=== PATIENT | female | born 1975 | race Caucasian/White ===

== ENCOUNTER 2018-12-15 08:34 | Outpatient (CLI) | payer BC ==
[2018-12-15 10:11] LABS: Hematocrit 40.9 % (30.3-42.9); Hemoglobin 13.9 gm/dl (10.1-14.3); Mean Corpuscular HGB Conc 34 % (30-34); Mean Corpuscular Volume 95 fl (79-97); Platelet Count 386 K/mm3 (140-440); Red Blood Count 4.29 M/mm3 (3.65-5.03); Red Cell Distribution Width 14.7 % (13.2-15.2)
[2018-12-15 10:23] LABS: Alanine Aminotransferase 23 units/L (7-56); BUN/Creatinine Ratio 20; Blood Urea Nitrogen 12 mg/dL (7-17); Calcium 9.2 mg/dL (8.4-10.2); Hemolysis Index 1
[2018-12-15 11:22] LABS: Free T4 (Free Thyroxine) 0.87 ng/dL (0.76-1.46)
== END 2018-12-15 08:35 | disposition home or self-care (01) ==
LOC: LAB 08:34
PROVIDERS: ATTEND Internal Medicine
DX: Z00.00 Encounter for general adult medical examination without abnormal findings (principal)
CPT/HCPCS: 36415; 80048; 80053; 82607; 82747; 83036; 84439; 84443; 85027

== ENCOUNTER 2019-02-09 13:49 | Outpatient (CLI) | payer BC ==
[2019-02-09 15:21] LABS: Alanine Aminotransferase 25 units/L (7-56); Albumin 4.3 g/dL (3.9-5); BUN/Creatinine Ratio 13; Blood Urea Nitrogen 9 mg/dL (7-17); Calcium 9.3 mg/dL (8.4-10.2); Hemolysis Index 5
== END 2019-02-09 13:50 | disposition home or self-care (01) ==
LOC: LAB 13:49
PROVIDERS: ATTEND Family Medicine
DX: K58.1 Irritable bowel syndrome with constipation (principal); R10.12 Left upper quadrant pain; R14.0 Abdominal distension (gaseous); Z86.19 Personal history of other infectious and parasitic diseases
CPT/HCPCS: 36415; 80053

== ENCOUNTER 2019-05-18 23:04 | Inpatient (IN) | payer BC ==
[2019-05-18] MEDS ORDERED: IPRATROPIUM/ALBUTEROL SULFATE 3 ML AMPUL.NEB IH ONE ×2 (23:18→23:23)
[2019-05-18] MEDS ORDERED: methylPREDNISolone Sod Succinate 125 MG/2 ML INJ IV ONE (23:21)
[2019-05-18] MEDS ORDERED: MAGNESIUM SULFATE 2 GM/50 ML BAG IV ONE (23:21)
--- NOTE | 2019-05-18 23:29 | Emergency Department Report ---
ED Asthma HPI - General Chief Complaint: Adult Asthma Stated Complaint: WILBERT Time Seen by Provider: 05/18/19 23:09 Source: patient, family Mode of arrival: Ambulatory Limitations: Other - History of Present Illness Initial Comments: Patient is a 43-year-old female with known asthma that presents emergency with complaints of shortness of breath and difficulty breathing. Patient states her asthma is worsening. Patient states her since been going on for 1 day. Patient states she is taking her Advair and albuterol. Patient states she has a insole taper and a primary care. Patient denies fever and chills. Patient denies chest pain. MD Complaint: "asthma attack", shortness of breath, wheezing -: Sudden Asthma History: childhood onset Severity: severe Associated Symptoms: dry cough. denies: productive cough, fever, chest pain, hemoptysis, leg edema, syncope Treatments Prior to Arrival: inhaled bronchodilator - Related Data Current Asthma Therapy: inhaled bronchodilator, inhaled steroid Allergies Allergy/AdvReac Type Severity Reaction Status Date / Time No Known Allergies Allergy Unverified 05/18/19 23:26 ED Review of Systems ROS: Stated complaint: WILBERT Other details as noted in HPI Constitutional: denies: chills, fever Eyes: denies: eye pain, eye discharge, vision change ENT: denies: ear pain, throat pain Respiratory: cough, shortness of breath, SOB with exertion, SOB at rest, wheezing Cardiovascular: denies: chest pain, palpitations Endocrine: no symptoms reported Gastrointestinal: denies: abdominal pain, nausea, diarrhea Genitourinary: denies: urgency, dysuria, discharge Musculoskeletal: denies: back pain, joint swelling, arthralgia Skin: denies: rash, lesions Neurological: denies: headache, weakness, paresthesias Psychiatric: denies: anxiety, depression Hematological/Lymphatic: denies: easy bleeding, easy bruising ED Past Medical Hx - Past Medical History Previous Medical History?: Yes Hx Asthma: Yes - Surgical History Past Surgical History?: No - Family History Family history: no significant - Social History Smoking Status: Never Smoker Substance Use Type: None ED Physical Exam - General Limitations: Other General appearance: alert, in distress - Head Head exam: Present: atraumatic, normocephalic - Eye Eye exam: Present: normal appearance - ENT ENT exam: Present: mucous membranes moist - Neck Neck exam: Present: normal inspection - Respiratory Respiratory exam: Present: respiratory distress, wheezes, chest wall tenderness - Cardiovascular Cardiovascular Exam: Present: regular rate, normal rhythm. Absent: systolic murmur, diastolic murmur, rubs, gallop - GI/Abdominal GI/Abdominal exam: Present: soft, normal bowel sounds - Extremities Exam Extremities exam: Present: normal inspection - Back Exam Back exam: Present: normal inspection - Neurological Exam Neurological exam: Present: alert, oriented X3 - Psychiatric Psychiatric exam: Present: normal affect, normal mood - Skin Skin exam: Present: warm, dry, intact, normal color. Absent: rash ED Course Vital Signs 05/18/19 05/18/19 05/18/19 19:05 20:00 20:30 Temperature Pulse Rate 67 84 Pulse Rate [ Anterior Bilateral Throughout] Respiratory 14 17 Rate Respiratory Rate [Anterior Bilateral Throughout] Blood Pressure 166/103 166/103 176/124 O2 Sat by Pulse 100 98 Oximetry 05/18/19 05/18/19 05/18/19 21:00 21:30 23:26 Temperature Pulse Rate 104 H 77 96 H Pulse Rate [ Anterior Bilateral Throughout] Respiratory 10 L 14 Rate Respiratory Rate [Anterior Bilateral Throughout] Blood Pressure 176/124 159/88 159/88 O2 Sat by Pulse 97 98 100 Oximetry 05/18/19 05/18/19 05/19/19 23:35 23:42 00:02 Temperature 97.9 F Pulse Rate 109 H Pulse Rate [ 103 H Anterior Bilateral Throughout] Respiratory 26 H Rate Respiratory 22 22 Rate [Anterior Bilateral Throughout] Blood Pressure 155/94 O2 Sat by Pulse 96 Oximetry 05/19/19 05/19/19 00:04 02:28 Temperature Pulse Rate 103 H Pulse Rate [ 99 H Anterior Bilateral Throughout] Respiratory 17 Rate Respiratory 18 Rate [Anterior Bilateral Throughout] Blood Pressure O2 Sat by Pulse 100 Oximetry - Reevaluation(s) Reevaluation #1: Patient is still having increased work to breathe. Patient will placed on BiPAP. Patient's oxygen has improved. 05/18/19 23:43 Reevaluation #2: Patient states she is feeling better. Patient is currently on the BiPAP. Patient still wheezing. Patient's work to breathe has decreased. I discussed all results patient. Discussed plan of care outpatient. Patient agrees with plan of care and admission. [facility] 00:58 - Consultations Consultation #1: Hospitalist consult for admission. Hospitalist and the patient. 05/19/19 00:58 ED Medical Decision Making - Lab Data Result diagrams: 05/18/19 23:35 05/18/19 23:35 - Radiology Data Radiology results: report reviewed interpreted by me: CHEST 1 VIEW 1. No acute findings. CHEST 1 VIEW INDICATION / CLINICAL INFORMATION: Asthma. COMPARISON: None available. FINDINGS: SUPPORT DEVICES: None. HEART / MEDIASTINUM: No significant abnormality. LUNGS / PLEURA: No significant pulmonary or pleural abnormality.. No pneumothorax. ADDITIONAL FINDINGS: No significant additional findings. IMPRESSION: 1. No acute findings. - Medical Decision Making Patient is a 43-year-old female that presents emergency room with complaints of shortness of breath and asthmatic sounds. Patient found to be in respiratory distress and increased work of breathing and status asthmaticus. Patient given multiple medications. Patient required BiPAP for respiratory support and oxygen support. Patient's work of breathing improved with BiPAP. Patient will be admitted to the hospitalist service for observation. Patient will remain on the BiPAP. - Differential Diagnosis shortness of breath, asthma, status asthmaticus, bronchitis, pneumonia Critical Care Time: Yes Critical care time in (mins) excluding proc time.: 35 Critical care attestation.: If time is entered above; I have spent that time in minutes in the direct care of this critically ill patient, excluding procedure time. Critical Care Time: 35 minutes ED Disposition Clinical Impression: Respiratory distress, SOB (shortness of breath), Hypoxia Status asthmaticus Qualifiers: Asthma severity: severe Asthma persistence: unspecified Qualified Code(s): J45.902 - Unspecified asthma with status asthmaticus Respiratory failure Qualifiers: Chronicity: acute Respiratory failure complication: hypoxia Qualified Code(s): J96.01 - Acute respiratory failure with hypoxia Disposition: -09 OP ADMIT IP TO THIS HOSP Is pt being admited?: Yes Does the pt Need Aspirin: No Condition: Critical Time of Disposition: 00:58
[2019-05-18] MEDS ORDERED: ALBUTEROL 2.5 MG/3 ML NEBU IH ONE (23:43)
[2019-05-18 23:54] LABS: Basophils # (Auto) 0.1 K/mm3 (0.0-0.1); Basophils % (Auto) 0.5 % (0.0-1.8); Eosinophils # (Auto) 1.1 K/mm3 (0.0-0.4); Hematocrit 43.7 % (30.3-42.9); Hemoglobin 14.4 gm/dl (10.1-14.3); Lymphocytes % (Auto) 12.9 % (13.4-35.0); Mean Corpuscular HGB Conc 33 % (30-34); Mean Corpuscular Volume 96 fl (79-97); Monocytes # (Auto) 1.5 K/mm3 (0.0-0.8); Monocytes % (Auto) 9.8 % (0.0-7.3); Platelet Count 407 K/mm3 (140-440); Red Blood Count 4.56 M/mm3 (3.65-5.03); Red Cell Distribution Width 14.2 % (13.2-15.2)
--- NOTE | 2019-05-19 00:01 | XRay Report ---
CHEST 1 VIEW INDICATION / CLINICAL INFORMATION: Asthma. COMPARISON: None available. FINDINGS: SUPPORT DEVICES: None. HEART / MEDIASTINUM: No significant abnormality. LUNGS / PLEURA: No significant pulmonary or pleural abnormality.. No pneumothorax. ADDITIONAL FINDINGS: No significant additional findings. IMPRESSION: 1. No acute findings. Signer Name: Ray Crews MD Signed: 05/18/2019 11:57 PM Workstation Name: [id number]
[2019-05-19 00:16] LABS: Alanine Aminotransferase 25 units/L (7-56); Albumin 4.1 g/dL (3.9-5); BUN/Creatinine Ratio 12; Blood Urea Nitrogen 7 mg/dL (7-17); Hemolysis Index 5
[2019-05-19] MEDS ORDERED: CEFEPIME/NS 2 GM/100 ML 2 GM/100 ML BAG IV ONE ×2 (00:33→05:26)
[2019-05-19] MEDS ORDERED: DEXTROSE 50% IN WATER (25GM) 50 ML SYRINGE IV PRN (01:39)
[2019-05-19] MEDS ORDERED: ONDANSETRON 4 MG/2 ML INJ IV PRN (01:39)
--- NOTE | 2019-05-19 02:17 | History and Physical Report ---
<BEST OWEN Chinedu - Last Filed: 05/19/19 02:10> History of Present Illness Date of examination: 05/19/19 Date of admission: 05/19/2019 Chief complaint: WILBERT History of present illness: 42-year-old female with history of asthma and diabetes who presents to [facility] ED with complaints of difficulty breathing, and shortness of breath for the past day. Patient states that she has been experiencing i worsening shortness of breath and difficulty breathing despite using her rescue inhaler and maintenance Advair inhaler for the past day. She states that she is unable to walk more than a few steps without becoming profoundly short of breath. She also complains of cough with yellow/green sputum production. She denies tobacco use, fever, headache, hemoptysis, or recent sick contacts. Her corporate quality engineer is Dr. Sousa and her PCP is Dr. Bay. At the time of my examination patient is sitting up in stretcher, alert and oriented x3, on BiPAP. She is unable to talk in complete sentences due to her shortness of breath. On auscultation scattered wheezings with prolonged expiratory phase. [facility] and upper respiratory tract infection. Also will consult Dr. Sousa. Past History Past Medical History: diabetes, hypertension, other (Asthma) Past Surgical History: No surgical history Social history: lives with family. denies: smoking Family history: no significant family history Medications and Allergies Allergies Allergy/AdvReac Type Severity Reaction Status Date / Time No Known Allergies Allergy Unverified 05/18/19 23:26 Active Meds: Active Medications Acetaminophen (Tylenol) 650 mg PO Q4H PRN PRN Reason: Pain MILD(1-3)/Fever >100.5/COTTRELL Albuterol (Proventil) 2.5 mg IH Q3HRT PRN PRN Reason: Shortness Of Breath Albuterol/Ipratropium (Duoneb *Not For Prn Use*) 1 ampul IH Q6HRT [facility] Benzonatate (Tessalon Perles) 100 mg PO Q8HR ERIC Budesonide (Pulmicort) 0.5 mg IH Q12HRT [facility] Dextrose (D50w (25gm) Syringe) 0 ml IV Q30MIN PRN; Protocol PRN Reason: Hypoglycemia Docusate Sodium (Colace) 100 mg PO BID [facility] Guaifenesin (Mucinex Er) 600 mg PO BID [facility] Heparin Sodium (Porcine) (Heparin) 5,000 unit SUB-Q Q12HR [facility] Levofloxacin/Dextrose (Levaquin 500mg/100ml) 500 mg in 100 mls @ 100 mls/hr IV Q24HR [facility]; Protocol Insulin Human Lispro (Humalog) 0 unit SUB-Q ACHS [facility]; Protocol Methylprednisolone Sodium Succinate (Solu-Medrol) 80 mg IV Q8HR [facility] Ondansetron HCl (Zofran) 4 mg IV Q8H PRN PRN Reason: Nausea And Vomiting Sodium Chloride (Sodium Chloride Flush Syringe 10 Ml) 10 ml IV BID [facility] Sodium Chloride (Sodium Chloride Flush Syringe 10 Ml) 10 ml IV PRN PRN PRN Reason: LINE FLUSH Review of Systems All systems: negative Respiratory: cough with sputum (dark yellow/ green), shortness of breath, dyspnea on exertion, wheezing Exam - Physical Exam Narrative exam: Physical exam General appearance: Present: mild distress, alert and oriented 3, pleasant, well-developed, adult female - EENT Eyes: Present: PERRL, EOM intact ENT: hearing intact, normal dentition - Neck Neck: Present: supple, normal ROM - Respiratory Respiratory effort: Labored, on BiPAP Respiratory: Wheezing throughout - Cardiovascular Heart rate: 109 (bpm) Rhythm: Sinus tachycardia Heart Sounds: Present: S1 & S2. Absent: rub, click - Extremities Extremities: no ischemia, pulses intact, - Peripheral Assessment Peripheral Pulses: within normal limits - Abdominal General gastrointestinal: soft, non-tender, normal bowel sounds - Integumentary Integumentary: Present: warm, dry - Musculoskeletal Musculoskeletal: Able to move all extremities -Neurological Neurological: CN II-XII intact - Psychiatric Psychiatric: cooperative - Constitutional Vitals: Temp Pulse Resp BP Pulse Ox 97.9 F 103 H 17 155/94 100 05/18/19 23:35 05/19/19 00:04 05/19/19 00:04 05/18/19 23:35 05/19/19 00:04 Results - Labs CBC & Chem 7: 05/18/19 23:35 05/18/19 23:35 Labs: Laboratory Last Values WBC 15.3 K/mm3 (4.5-11.0) H 05/18/19 23:35 RBC 4.56 M/mm3 (3.65-5.03) 05/18/19 23:35 Hgb 14.4 gm/dl (10.1-14.3) H 05/18/19 23:35 Hct 43.7 % (30.3-42.9) H 05/18/19 23:35 MCV 96 fl (79-97) 05/18/19 23:35 MCH 32 pg (28-32) 05/18/19 23:35 MCHC 33 % (30-34) 05/18/19 23:35 RDW 14.2 % (13.2-15.2) 05/18/19 23:35 Plt Count 407 K/mm3 (140-440) 05/18/19 23:35 Lymph % (Auto) 12.9 % (13.4-35.0) L 05/18/19 23:35 [place] % (Auto) 9.8 % (0.0-7.3) H 05/18/19 23:35 Eos % (Auto) 7.0 % (0.0-4.3) H 05/18/19 23:35 Baso % (Auto) 0.5 % (0.0-1.8) 05/18/19 23:35 Lymph # 2.0 K/mm3 (1.2-5.4) 05/18/19 23:35 [place] # 1.5 K/mm3 (0.0-0.8) H 05/18/19 23:35 Eos # 1.1 K/mm3 (0.0-0.4) H 05/18/19 23:35 Baso # 0.1 K/mm3 (0.0-0.1) 05/18/19 23:35 Seg Neutrophils % 69.8 % (40.0-70.0) 05/18/19 23:35 Seg Neutrophils # 10.7 K/mm3 (1.8-7.7) H 05/18/19 23:35 Sodium 142 mmol/L (137-145) 05/18/19 23:35 Potassium 4.4 mmol/L (3.6-5.0) 05/18/19 23:35 Chloride 105.8 mmol/L (98-107) 05/18/19 23:35 Carbon Dioxide 24 mmol/L (22-30) 05/18/19 23:35 Anion Gap 17 mmol/L 05/18/19 23:35 BUN 7 mg/dL (7-17) 05/18/19 23:35 Creatinine 0.6 mg/dL (0.7-1.2) L 05/18/19 23:35 Estimated GFR > 60 ml/min 05/18/19 23:35 BUN/Creatinine Ratio 12 % 05/18/19 23:35 Glucose 126 mg/dL (65-100) H 05/18/19 23:35 Calcium 9.0 mg/dL (8.4-10.2) 05/18/19 23:35 Total Bilirubin 0.40 mg/dL (0.1-1.2) 05/18/19 23:35 AST 22 units/L (5-40) 05/18/19 23:35 ALT 25 units/L (7-56) 05/18/19 23:35 Alkaline Phosphatase 58 units/L (35-129) 05/18/19 23:35 Total Protein 6.7 g/dL (6.3-8.2) 05/18/19 23:35 Albumin 4.1 g/dL (3.9-5) 05/18/19 23:35 Albumin/Globulin Ratio 1.6 % 05/18/19 23:35 - Imaging and Cardiology Imaging and Cardiology: CXR: FINDINGS: SUPPORT DEVICES: None. HEART / MEDIASTINUM: No significant abnormality. LUNGS / PLEURA: No significant pulmonary or pleural abnormality.. No pneumothorax. ADDITIONAL FINDINGS: No significant additional findings. IMPRESSION: 1. No acute findings. Assessment and Plan Assessment and plan: 42-year-old female with history of asthma and diabetes who presents to [facility] ED with complaints of difficulty breathing, and shortness of breath for the past day. Asthma exacerbation/upper respiratory tract infection -C/o cough with yellow/green thick sputum production -Leukocytosis 15.3 -Increased shortness of breath -Start IV ABX -Scheduled duo nebs and Pulmicort, albuterol PRN -Start IV systemic steroids -Start Mucinex -Pulmonary consulted Acute hypoxic respiratory failure -No Baseline home oxygen requirements -Saturation <88% on RA -Currently on BiPaP -ABG pending -Monitor saturations -Continue supplemental oxygen wean as tolerated DM -POC BG monitoring -SSI coverage prn -HgbA1C pending Elevated blood pressure -BP 155/94 -No history of hypertension -Continue to monitor BP -Hold off on starting antihypertensive meds -IV hydralazine as needed DVT PPX -on Heparin and Scd's Advance Directives: No VTE prophylaxis?: Chemical Plan of care discussed with patient/family: Yes <ERICK RUSH - Last Filed: 05/19/19 06:23> History of Present Illness Date of admission: 05/19/19 03:14 Medications and Allergies Active Meds: Active Medications Acetaminophen (Tylenol) 650 mg PO Q4H PRN PRN Reason: Pain MILD(1-3)/Fever >100.5/COTTRELL Albuterol (Proventil) 2.5 mg IH Q3HRT PRN PRN Reason: Shortness Of Breath Last Admin: 05/19/19 06:03 Dose: 2.5 mg Documented by: Albuterol/Ipratropium (Duoneb *Not For Prn Use*) 1 ampul IH Q6HRT [facility] Last Admin: 05/19/19 02:27 Dose: 1 ampul Documented by: Benzonatate (Tessalon Perles) 100 mg PO Q8HR [facility] Last Admin: 05/19/19 05:16 Dose: 100 mg Documented by: Budesonide (Pulmicort) 0.5 mg IH Q12HRT [facility] Dextrose (D50w (25gm) Syringe) 0 ml IV Q30MIN PRN; Protocol PRN Reason: Hypoglycemia Docusate Sodium (Colace) 100 mg PO BID [facility] Guaifenesin (Mucinex Er) 600 mg PO BID [facility] Heparin Sodium (Porcine) (Heparin) 5,000 unit SUB-Q Q12HR [facility] Levofloxacin/Dextrose (Levaquin 500mg/100ml) 500 mg in 100 mls @ 100 mls/hr IV Q24HR [facility]; Protocol Insulin Human Lispro (Humalog) 0 unit SUB-Q ACHS [facility]; Protocol Methylprednisolone Sodium Succinate (Solu-Medrol) 80 mg IV Q8HR [facility] Last Admin: 05/19/19 05:16 Dose: 80 mg Documented by: Ondansetron HCl (Zofran) 4 mg IV Q8H PRN PRN Reason: Nausea And Vomiting Sodium Chloride (Sodium Chloride Flush Syringe 10 Ml) 10 ml IV BID [facility] Sodium Chloride (Sodium Chloride Flush Syringe 10 Ml) 10 ml IV PRN PRN PRN Reason: LINE FLUSH Exam - Constitutional Vitals: Temp Pulse Resp BP Pulse Ox 97.7 F 114 H 24 126/96 97 05/19/19 04:50 05/19/19 06:05 05/19/19 06:05 05/19/19 05:00 05/19/19 05:00 Results - Labs CBC & Chem 7: 05/18/19 23:35 05/18/19 23:35 Labs: Laboratory Last Values WBC 15.3 K/mm3 (4.5-11.0) H 05/18/19 23:35 RBC 4.56 M/mm3 (3.65-5.03) 05/18/19 23:35 Hgb 14.4 gm/dl (10.1-14.3) H 05/18/19 23:35 Hct 43.7 % (30.3-42.9) H 05/18/19 23:35 MCV 96 fl (79-97) 05/18/19 23:35 MCH 32 pg (28-32) 05/18/19 23:35 MCHC 33 % (30-34) 05/18/19 23:35 RDW 14.2 % (13.2-15.2) 05/18/19 23:35 Plt Count 407 K/mm3 (140-440) 05/18/19 23:35 Lymph % (Auto) 12.9 % (13.4-35.0) L 05/18/19 23:35 Blackford % (Auto) 9.8 % (0.0-7.3) H 05/18/19 23:35 Eos % (Auto) 7.0 % (0.0-4.3) H 05/18/19 23:35 Baso % (Auto) 0.5 % (0.0-1.8) 05/18/19 23:35 Lymph # 2.0 K/mm3 (1.2-5.4) 05/18/19 23:35 [place] # 1.5 K/mm3 (0.0-0.8) H 05/18/19 23:35 Eos # 1.1 K/mm3 (0.0-0.4) H 05/18/19 23:35 Baso # 0.1 K/mm3 (0.0-0.1) 05/18/19 23:35 Seg Neutrophils % 69.8 % (40.0-70.0) 05/18/19 23:35 Seg Neutrophils # 10.7 K/mm3 (1.8-7.7) H 05/18/19 23:35 ABG pH 7.390 pH Units (7.350-7.450) 05/19/19 02:20 ABG pCO2 39.5 mm Hg 05/19/19 02:20 ABG pO2 81.7 mm Hg (80.0-90.0) 05/19/19 02:20 ABG HCO3 23.4 mmol/L (20.0-26.0) 05/19/19 02:20 ABG O2 Saturation 96.2 % (95.0-99.0) 05/19/19 02:20 ABG O2 Content 19.6 (0.0-44) 05/19/19 02:20 ABG Base Excess -1.3 mmol/L (-2.0-3.0) 05/19/19 02:20 ABG Hemoglobin 14.7 gm/dl (12.0-16.0) 05/19/19 02:20 ABG Carboxyhemoglobin 1.1 % (0.0-5.0) 05/19/19 02:20 ABG Methemoglobin 0.5 % (0.0-1.5) 05/19/19 02:20 Oxyhemoglobin 94.6 % (95.0-99.0) L 05/19/19 02:20 FiO2 30 % 05/19/19 02:20 Sodium 142 mmol/L (137-145) 05/18/19 23:35 Potassium 4.4 mmol/L (3.6-5.0) 05/18/19 23:35 Chloride 105.8 mmol/L (98-107) 05/18/19 23:35 Carbon Dioxide 24 mmol/L (22-30) 05/18/19 23:35 Anion Gap 17 mmol/L 05/18/19 23:35 BUN 7 mg/dL (7-17) 05/18/19 23:35 Creatinine 0.6 mg/dL (0.7-1.2) L 05/18/19 23:35 Estimated GFR > 60 ml/min 05/18/19 23:35 BUN/Creatinine Ratio 12 % 05/18/19 23:35 Glucose 126 mg/dL (65-100) H 05/18/19 23:35 Calcium 9.0 mg/dL (8.4-10.2) 05/18/19 23:35 Total Bilirubin 0.40 mg/dL (0.1-1.2) 05/18/19 23:35 AST 22 units/L (5-40) 05/18/19 23:35 ALT 25 units/L (7-56) 05/18/19 23:35 Alkaline Phosphatase 58 units/L (35-129) 05/18/19 23:35 Total Protein 6.7 g/dL (6.3-8.2) 05/18/19 23:35 Albumin 4.1 g/dL (3.9-5) 05/18/19 23:35 Albumin/Globulin Ratio 1.6 % 05/18/19 23:35 Assessment and Plan Assessment and plan: Patient seen and examined, discussed with DRIVER SUPERVISOR, agree wit plan as stated above
[2019-05-19] MEDS: IPRATROPIUM/ALBUTEROL SULFATE 3 ML AMPUL.NEB IH SCH ×4 (02:27→20:12)
[2019-05-19 02:32] LABS: ABG Base Excess -1.3 mmol/L (-2.0-3.0); ABG HCO3 23.4 mmol/L (20.0-26.0); ABG Methemoglobin 0.5 % (0.0-1.5); ABG Oxygen Saturation 96.2 % (95.0-99.0); ABG PCO2 39.5 mm Hg; ABG PH 7.39 pH Units (7.350-7.450); ABG PO2 81.7 mm Hg (80.0-90.0)
[2019-05-19] MEDS: BENZONATATE 100 MG CAP PO SCH ×3 (05:16→23:09)
[2019-05-19] MEDS: methylPREDNISolone Sod Succinate 40 MG/1 ML INJ IV SCH ×3 (05:16→23:08)
[2019-05-19] MEDS: ALBUTEROL 2.5 MG/3 ML NEBU IH PRN ×3 (06:03→18:23)
[2019-05-19] MEDS: BUDESONIDE 0.5 MG/2 ML NEBU IH SCH ×2 (08:23→20:12)
[2019-05-19] MEDS: INSULIN LISPRO 100 UNIT/ML SUB-Q SCH ×3 (09:03→17:35)
[2019-05-19] MEDS: guaiFENesin ER 600 MG TAB PO SCH ×2 (11:44→23:07)
[2019-05-19] MEDS: ACETAMINOPHEN 325 MG TAB PO PRN ×2 (11:44→23:10)
[2019-05-19] MEDS: DOCUSATE SODIUM 100 MG CAP PO SCH ×2 (11:44→23:04)
[2019-05-19] MEDS: HEPARIN 5,000 UNIT/1 ML VIAL SUB-Q SCH ×2 (11:45→23:05)
--- NOTE | 2019-05-19 14:51 | Event Note ---
Date: 05/19/19 Very pleasant 42-year-old female patient with significant past medical history of bronchial asthma Was admitted through emergency room with acute hypoxic respiratory failure requiring BiPAP Patient is on IV steroids, antibiotics, nebulizers, inhalation steroids Oxygen titrate O2 sats to more than 90%, evaluation for home oxygen at discharge Pending pulmonary consult, closely monitor the patient and adjust management as needed Plan of care reviewed with the patient and her at the bedside, I also discussed with patient's nurse Answered all their questions
[2019-05-20] MEDS: INSULIN LISPRO 100 UNIT/ML SUB-Q SCH ×5 (00:08→23:49)
[2019-05-20] MEDS: IPRATROPIUM/ALBUTEROL SULFATE 3 ML AMPUL.NEB IH SCH ×2 (01:13→08:10)
[2019-05-20] MEDS: methylPREDNISolone Sod Succinate 40 MG/1 ML INJ IV SCH ×3 (05:27→19:14)
[2019-05-20] MEDS: BENZONATATE 100 MG CAP PO SCH ×3 (05:28→22:39)
[2019-05-20 07:11] LABS: Hematocrit 40.8 % (30.3-42.9); Hemoglobin 13.7 gm/dl (10.1-14.3); Mean Corpuscular HGB Conc 34 % (30-34); Mean Corpuscular Volume 95 fl (79-97); Platelet Count 427 K/mm3 (140-440); Red Blood Count 4.29 M/mm3 (3.65-5.03); Red Cell Distribution Width 14.3 % (13.2-15.2)
[2019-05-20 07:53] LABS: BUN/Creatinine Ratio 22; Blood Urea Nitrogen 11 mg/dL (7-17); Calcium 8.8 mg/dL (8.4-10.2); Hemolysis Index 18
[2019-05-20] MEDS: BUDESONIDE 0.5 MG/2 ML NEBU IH SCH ×2 (08:10→21:43)
[2019-05-20 08:45] LABS: Basophils % (Manual) 0 % (0.0-1.8); Eosinophils % (Manual) 0 % (0.0-4.3); Total Cells Counted 100
[2019-05-20 08:46] LABS: RBC Morphology Normal
[2019-05-20 08:47] LABS: Platelet Estimate Consistent w Auto; Toxic Granulation 1+
[2019-05-20] MEDS: guaiFENesin ER 600 MG TAB PO SCH (09:08)
[2019-05-20] MEDS: HEPARIN 5,000 UNIT/1 ML VIAL SUB-Q SCH ×2 (09:09→22:40)
--- NOTE | 2019-05-20 09:14 | Consultation ---
History of Present Illness Consult date: 05/20/19 Requesting physician: RASHAD ARMENTA Reason for consult: asthma History of present illness: 43 y/o with known asthma, followed by Lars admitted with asthma exacerbation. Patient has been feeling bad for about 30 days. This has progressively gotten worse. Saw Lars and was treated with steroids and felt better but as soon as she finished started feeling bad again. Unable to walk 2 steps before short of breath. Constant wheeze and now since admission cough with yellow sputum. 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 Did get the flu shot but not swabbed for the flu. Remainder is negative. Past History Past Medical History: diabetes, GERD, hypertension, other (Asthma) Past Surgical History: No surgical history Social history: lives with family. denies: smoking Family history: no significant family history Medications and Allergies Allergies Allergy/AdvReac Type Severity Reaction Status Date / Time No Known Allergies Allergy Unverified 05/18/19 23:26 Home Medications Medication Instructions Recorded Confirmed Last Taken Type Albuterol INH(or & Nicu Only) 90 mcg INHALATION QDAY 05/19/19 05/19/19 Unknown History [ProAir HFA Inhaler] Ipratropium/Albuterol Sulfate 1 ampul INHALATION PRN 05/19/19 05/19/19 Unknown History [DUONEB *Not for PRN Use*] Metformin HCl [metFORMIN] 500 mg PO BID 05/19/19 05/19/19 Unknown History Active Meds: Active Medications Acetaminophen (Tylenol) 650 mg PO Q4H PRN PRN Reason: Pain MILD(1-3)/Fever >100.5/COTTRELL Last Admin: 05/19/19 23:10 Dose: 650 mg Documented by: Albuterol (Proventil) 2.5 mg IH Q3HRT PRN PRN Reason: Shortness Of Breath Last Admin: 05/19/19 18:23 Dose: 2.5 mg Documented by: Albuterol (Proventil) 2.5 mg IH Q4HRT ERIC Benzonatate (Tessalon Perles) 100 mg PO Q8HR ERIC Last Admin: 05/20/19 05:28 Dose: 100 mg Documented by: Budesonide (Pulmicort) 0.5 mg IH Q12HRT ERIC Last Admin: 05/20/19 08:10 Dose: 0.5 mg Documented by: Budesonide (Pulmicort) 0.5 mg IH Q12HRT [facility] Dextrose (D50w (25gm) Syringe) 0 ml IV Q30MIN PRN; Protocol PRN Reason: Hypoglycemia Docusate Sodium (Colace) 100 mg PO BID [facility] Last Admin: 05/19/19 23:04 Dose: Not Given Documented by: Heparin Sodium (Porcine) (Heparin) 5,000 unit SUB-Q Q12HR [facility] Last Admin: 05/19/19 23:05 Dose: 5,000 unit Documented by: Levofloxacin/Dextrose (Levaquin 500mg/100ml) 500 mg in 100 mls @ 100 mls/hr IV Q24HR [facility]; Protocol Last Admin: 05/19/19 11:44 Dose: 100 mls/hr Documented by: Insulin Human Lispro (Humalog) 0 unit SUB-Q ACHS [facility]; Protocol Last Admin: 05/20/19 00:08 Dose: 2 unit Documented by: Methylprednisolone Sodium Succinate (Solu-Medrol) 60 mg IV Q6HR [facility] Ondansetron HCl (Zofran) 4 mg IV Q8H PRN PRN Reason: Nausea And Vomiting Pantoprazole Sodium (Protonix) 40 mg PO BID [facility] Sodium Chloride (Sodium Chloride Flush Syringe 10 Ml) 10 ml IV BID [facility] Last Admin: 05/19/19 23:09 Dose: 10 ml Documented by: Sodium Chloride (Sodium Chloride Flush Syringe 10 Ml) 10 ml IV PRN PRN PRN Reason: LINE FLUSH Review of Systems All systems: negative Physical Examination Vital signs: Vital Signs BP 166/103 05/18/19 19:05 General appearance: no acute distress, alert Eyes: non-icteric ENT: oropharynx moist Neck: supple, no JVD Effort: mildly labored Ascultation: Bilateral: wheezes Percussion: Bilateral: not dull Tactile fremitus: Bilateral: normal Cardiovascular: regular rate and rhythm Gastrointestinal: normoactive bowel sounds, soft, non-distended Integumentary: normal Extremities: no cyanosis, no edema, pink and warm, pulses normal Musculoskeletal: no deformities Gait: normal gait, normal posture normal mental status, non-focal exam mood appropriate, affect normal Results - Laboratory Findings CBC and BMP: 05/20/19 06:23 05/20/19 06:23 ABG ABG pH 7.390 pH Units (7.350-7.450) 05/19/19 02:20 ABG pCO2 39.5 mm Hg 05/19/19 02:20 ABG pO2 81.7 mm Hg (80.0-90.0) 05/19/19 02:20 ABG O2 Saturation 96.2 % (95.0-99.0) 05/19/19 02:20 Abnormal lab findings: Abnormal Labs 05/18/19 05/18/19 05/19/19 23:35 23:35 02:20 WBC 15.3 H Hgb 14.4 H Hct 43.7 H Lymph % (Auto) 12.9 L [place] % (Auto) 9.8 H Eos % (Auto) 7.0 H [place] # 1.5 H Eos # 1.1 H Seg Neuts % (Manual) Lymphocytes % (Manual) Seg Neutrophils # 10.7 H Seg Neutrophils # Man Lymphocytes # (Manual) Oxyhemoglobin 94.6 L Creatinine 0.6 L Glucose 126 H POC Glucose 05/19/19 05/19/19 05/19/19 08:08 11:19 16:16 WBC Hgb Hct Lymph % (Auto) [place] % (Auto) Eos % (Auto) [place] # Eos # Seg Neuts % (Manual) Lymphocytes % (Manual) Seg Neutrophils # Seg Neutrophils # Man Lymphocytes # (Manual) Oxyhemoglobin Creatinine Glucose POC Glucose 206 H 199 H 196 H 05/19/19 05/20/19 05/20/19 22:32 06:23 06:23 WBC 25.3 H Hgb Hct Lymph % (Auto) [place] % (Auto) Eos % (Auto) [place] # Eos # Seg Neuts % (Manual) 95.0 H Lymphocytes % (Manual) 4.0 L Seg Neutrophils # Seg Neutrophils # Man 24.0 H Lymphocytes # (Manual) 1.0 L Oxyhemoglobin Creatinine 0.5 L Glucose 194 H POC Glucose 178 H 05/20/19 08:22 WBC Hgb Hct Lymph % (Auto) [place] % (Auto) Eos % (Auto) [place] # Eos # Seg Neuts % (Manual) Lymphocytes % (Manual) Seg Neutrophils # Seg Neutrophils # Man Lymphocytes # (Manual) Oxyhemoglobin Creatinine Glucose POC Glucose 157 H - Diagnostic Findings Chest x-ray: image reviewed (unremarkable) Assessment and Plan 43 y/o female with acute exacerbation of asthma. 1. Stopped duonebs 2. Changed to scheduled albuterol q4 hours 3. Added BID pulmicort 4. Changed steroids to 60q6 5. Added BID protonix 6. Does not need IVF's as she is eating and drinking 7. Stopped mucinex.
[2019-05-20] MEDS ORDERED: BUDESONIDE 0.5 MG/2 ML NEBU IH SCH (09:15)
[2019-05-20] MEDS: PANTOPRAZOLE 40 MG TAB PO SCH ×2 (09:21→22:40)
[2019-05-20] MEDS: DOCUSATE SODIUM 100 MG CAP PO SCH ×2 (09:21→22:40)
--- NOTE | 2019-05-20 11:26 | Progress Note ---
Assessment and Plan Assessment and plan: --Acute exacerbation of bronchial asthma; Oxygen titrate to O2 sats more than 90%, albuterol Inhalation steroids, tapering days of IV steroids Evaluation for home oxygen --Acute hypoxic respiratory failure present on admission; Patient's room air O2 sats was less than 88% Required BiPAP, continue current management --Type 2 diabetes mellitus; Moderate control, Accu-Chek sliding scale coverage and ADA diet Hold metformin, A1c 6.9 --DVT prophylaxis;Heparin After closely and adjust management as needed Pulmonary evaluation and recommendation of treatment appreciated 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 We will order a CT chest with contrast Possible discharge home in 1-2 days if stable Plan of care is reviewed with the patient and her nurse History Interval history: Patient seen and examined medical records reviewed Patient continues to have extensive wheezing, sometimes audible Had a rough night with episode of shortness of breath Patient denies chest pain Denies nausea or vomiting Denies abdominal pain Alert and awake, mild distress Vital signs reviewed Hospitalist Physical - Constitutional Vitals: Temp Pulse Resp BP Pulse Ox 97.4 F L 110 H 20 130/71 97 05/20/19 05:45 05/20/19 08:40 05/20/19 08:40 05/20/19 05:45 05/20/19 08:56 General appearance: Present: mild distress, well-nourished - EENT Eyes: Present: PERRL, EOM intact - Neck Neck: Present: supple, normal ROM - Respiratory Respiratory effort: normal Respiratory: bilateral: diminished, wheezing (diffuse wheezing), negative: rales, rhonchi - Cardiovascular Rhythm: regular Heart Sounds: Present: S1 & S2 - Extremities Extremities: no ischemia, No edema - Abdominal General gastrointestinal: soft, non-tender, non-distended, normal bowel sounds - Integumentary Integumentary: Present: clear, warm - Psychiatric Psychiatric: appropriate mood/affect, cooperative - Neurologic Neurologic: CNII-XII intact, moves all extremities Results - Labs CBC & Chem 7: 05/20/19 06:23 05/20/19 06:23 Labs: Laboratory Last Values WBC 25.3 K/mm3 (4.5-11.0) H 05/20/19 06:23 RBC 4.29 M/mm3 (3.65-5.03) 05/20/19 06:23 Hgb 13.7 gm/dl (10.1-14.3) 05/20/19 06:23 Hct 40.8 % (30.3-42.9) 05/20/19 06:23 MCV 95 fl (79-97) 05/20/19 06:23 MCH 32 pg (28-32) 05/20/19 06:23 MCHC 34 % (30-34) 05/20/19 06:23 RDW 14.3 % (13.2-15.2) 05/20/19 06:23 Plt Count 427 K/mm3 (140-440) 05/20/19 06:23 Lymph % (Auto) 12.9 % (13.4-35.0) L 05/18/19 23:35 Martin % (Auto) 9.8 % (0.0-7.3) H 05/18/19 23:35 Eos % (Auto) 7.0 % (0.0-4.3) H 05/18/19 23:35 Baso % (Auto) 0.5 % (0.0-1.8) 05/18/19 23:35 Lymph # 2.0 K/mm3 (1.2-5.4) 05/18/19 23:35 Martin # 1.5 K/mm3 (0.0-0.8) H 05/18/19 23:35 Eos # 1.1 K/mm3 (0.0-0.4) H 05/18/19 23:35 Baso # 0.1 K/mm3 (0.0-0.1) 05/18/19 23:35 Add Manual Diff Complete 05/20/19 06:23 Total Counted 100 05/20/19 06:23 Seg Neutrophils % Manager Metal 05/20/19 06:23 Seg Neuts % (Manual) 95.0 % (40.0-70.0) H 05/20/19 06:23 Band Neutrophils % 0 % 05/20/19 06:23 Lymphocytes % (Manual) 4.0 % (13.4-35.0) L 05/20/19 06:23 Reactive Lymphs % (Man) 0 % 05/20/19 06:23 Monocytes % (Manual) 1.0 % (0.0-7.3) 05/20/19 06:23 Eosinophils % (Manual) 0 % (0.0-4.3) 05/20/19 06:23 Basophils % (Manual) 0 % (0.0-1.8) 05/20/19 06:23 Metamyelocytes % 0 % 05/20/19 06:23 Myelocytes % 0 % 05/20/19 06:23 Promyelocytes % 0 % 05/20/19 06:23 Blast Cells % 0 % 05/20/19 06:23 Nucleated RBC % Not Reportable 05/20/19 06:23 Seg Neutrophils # 10.7 K/mm3 (1.8-7.7) H 05/18/19 23:35 Seg Neutrophils # Man 24.0 K/mm3 (1.8-7.7) H 05/20/19 06:23 Band Neutrophils # 0.0 K/mm3 05/20/19 06:23 Lymphocytes # (Manual) 1.0 K/mm3 (1.2-5.4) L 05/20/19 06:23 Abs React Lymphs (Man) 0.0 K/mm3 05/20/19 06:23 Monocytes # (Manual) 0.3 K/mm3 (0.0-0.8) 05/20/19 06:23 Eosinophils # (Manual) 0.0 K/mm3 (0.0-0.4) 05/20/19 06:23 Basophils # (Manual) 0.0 K/mm3 (0.0-0.1) 05/20/19 06:23 Metamyelocytes # 0.0 K/mm3 05/20/19 06:23 Myelocytes # 0.0 K/mm3 05/20/19 06:23 Promyelocytes # 0.0 K/mm3 05/20/19 06:23 Blast Cells # 0.0 K/mm3 05/20/19 06:23 WBC Morphology Not Reportable 05/20/19 06:23 Hypersegmented Neuts Not Reportable 05/20/19 06:23 Hyposegmented Neuts Not Reportable 05/20/19 06:23 Hypogranular Neuts Not Reportable 05/20/19 06:23 Smudge Cells Not Reportable 05/20/19 06:23 Toxic Granulation 1+ 05/20/19 06:23 Toxic Vacuolation Not Reportable 05/20/19 06:23 Dohle Bodies Not Reportable 05/20/19 06:23 Pelger-Huet Anomaly Not Reportable 05/20/19 06:23 Anny Rods Not Reportable 05/20/19 06:23 Platelet Estimate Consistent w auto 05/20/19 06:23 Clumped Platelets Not Reportable 05/20/19 06:23 Plt Clumps, EDTA Not Reportable 05/20/19 06:23 Large Platelets Not Reportable 05/20/19 06:23 Giant Platelets Not Reportable 05/20/19 06:23 Platelet Satelliting Not Reportable 05/20/19 06:23 Plt Morphology Comment Not Reportable 05/20/19 06:23 RBC Morphology Normal 05/20/19 06:23 Dimorphic RBCs Not Reportable 05/20/19 06:23 Polychromasia Not Reportable 05/20/19 06:23 Hypochromasia Not Reportable 05/20/19 06:23 Poikilocytosis Not Reportable 05/20/19 06:23 Anisocytosis Not Reportable 05/20/19 06:23 Microcytosis Not Reportable 05/20/19 06:23 Macrocytosis Not Reportable 05/20/19 06:23 Spherocytes Not Reportable 05/20/19 06:23 Pappenheimer Bodies Not Reportable 05/20/19 06:23 Sickle Cells Not Reportable 05/20/19 06:23 Target Cells Not Reportable 05/20/19 06:23 Tear Drop Cells Not Reportable 05/20/19 06:23 Ovalocytes Not Reportable 05/20/19 06:23 Helmet Cells Not Reportable 05/20/19 06:23 Salomon-Chester Bodies Not Reportable 05/20/19 06:23 [place] Rings Not Reportable 05/20/19 06:23 Yohannes Cells Not Reportable 05/20/19 06:23 Bite Cells Not Reportable 05/20/19 06:23 Crenated Cell Not Reportable 05/20/19 06:23 Elliptocytes Not Reportable 05/20/19 06:23 Acanthocytes (Spur) Not Reportable 05/20/19 06:23 Rouleaux Not Reportable 05/20/19 06:23 Hemoglobin C Crystals Not Reportable 05/20/19 06:23 Schistocytes Not Reportable 05/20/19 06:23 Malaria parasites Not Reportable 05/20/19 06:23 Rasheed Bodies Not Reportable 05/20/19 06:23 Hem Pathologist Commnt No 05/20/19 06:23 ABG pH 7.390 pH Units (7.350-7.450) 05/19/19 02:20 ABG pCO2 39.5 mm Hg 05/19/19 02:20 ABG pO2 81.7 mm Hg (80.0-90.0) 05/19/19 02:20 ABG HCO3 23.4 mmol/L (20.0-26.0) 05/19/19 02:20 ABG O2 Saturation 96.2 % (95.0-99.0) 05/19/19 02:20 ABG O2 Content 19.6 (0.0-44) 05/19/19 02:20 ABG Base Excess -1.3 mmol/L (-2.0-3.0) 05/19/19 02:20 ABG Hemoglobin 14.7 gm/dl (12.0-16.0) 05/19/19 02:20 ABG Carboxyhemoglobin 1.1 % (0.0-5.0) 05/19/19 02:20 ABG Methemoglobin 0.5 % (0.0-1.5) 05/19/19 02:20 Oxyhemoglobin 94.6 % (95.0-99.0) L 05/19/19 02:20 FiO2 30 % 05/19/19 02:20 Sodium 142 mmol/L (137-145) 05/20/19 06:23 Potassium 4.3 mmol/L (3.6-5.0) 05/20/19 06:23 Chloride 104.8 mmol/L (98-107) 05/20/19 06:23 Carbon Dioxide 23 mmol/L (22-30) 05/20/19 06:23 Anion Gap 19 mmol/L 05/20/19 06:23 BUN 11 mg/dL (7-17) 05/20/19 06:23 Creatinine 0.5 mg/dL (0.7-1.2) L 05/20/19 06:23 Estimated GFR > 60 ml/min 05/20/19 06:23 BUN/Creatinine Ratio 22 % 05/20/19 06:23 Glucose 194 mg/dL (65-100) H 05/20/19 06:23 POC Glucose 157 (70-105) H 05/20/19 08:22 Calcium 8.8 mg/dL (8.4-10.2) 05/20/19 06:23 Total Bilirubin 0.40 mg/dL (0.1-1.2) 05/18/19 23:35 AST 22 units/L (5-40) 05/18/19 23:35 ALT 25 units/L (7-56) 05/18/19 23:35 Alkaline Phosphatase 58 units/L (35-129) 05/18/19 23:35 Total Protein 6.7 g/dL (6.3-8.2) 05/18/19 23:35 Albumin 4.1 g/dL (3.9-5) 05/18/19 23:35 Albumin/Globulin Ratio 1.6 % 05/18/19 23:35 Active Medications - Current Medications Current Medications: Generic Name Dose Route Start Last Admin Trade Name Freq PRN Reason Stop Dose Admin Acetaminophen 650 mg 05/19/19 01:39 05/19/19 23:10 Tylenol PO 650 mg Q4H PRN Administration Pain MILD(1-3)/Fever >100.5/COTTRELL Albuterol 2.5 mg 05/20/19 12:00 Proventil IH Q4HRT ERIC Benzonatate 100 mg 05/19/19 06:00 05/20/19 05:28 Tessalon Perles PO 100 mg Q8HR ERIC Administration Budesonide 0.5 mg 05/20/19 20:00 Pulmicort IH Q12HRT ERIC Dextrose 0 ml 05/19/19 01:39 D50w (25gm) Syringe IV Q30MIN PRN Hypoglycemia Protocol Docusate Sodium 100 mg 05/19/19 10:00 05/20/19 09:21 Colace PO 100 mg BID ERIC Administration Heparin Sodium (Porcine) 5,000 unit 05/19/19 10:00 05/20/19 09:09 Heparin SUB-Q 5,000 unit Q12HR ERIC Administration Levofloxacin/Dextrose 500 mg in 100 mls @ 100 mls/hr 05/19/19 10:00 05/20/19 09:08 Levaquin 500mg/100ml IV 100 mls/hr Q24HR ERIC Administration Protocol Insulin Human Lispro 0 unit 05/19/19 07:30 05/20/19 09:07 Humalog SUB-Q 2 unit ACHS ERIC Administration Protocol Methylprednisolone Sodium Succinate 60 mg 05/20/19 12:00 Solu-Medrol IV Q6HR ERIC Ondansetron HCl 4 mg 05/19/19 01:39 Zofran IV Q8H PRN Nausea And Vomiting Pantoprazole Sodium 40 mg 05/20/19 10:00 05/20/19 09:21 Protonix PO 40 mg BID ERIC Administration Sodium Chloride 10 ml 05/19/19 10:00 05/20/19 09:21 Sodium Chloride Flush Syringe 10 Ml IV 10 ml BID ERIC Administration Sodium Chloride 10 ml 05/19/19 01:39 Sodium Chloride Flush Syringe 10 Ml IV PRN PRN LINE FLUSH
[2019-05-20] MEDS: ALBUTEROL 2.5 MG/3 ML NEBU IH SCH ×3 (12:32→21:43)
--- NOTE | 2019-05-20 23:13 | Cat Scan Report ---
CT chest with contrast INDICATION : chronic cough /Asthma exacerbation. TECHNIQUE: 100 mL of intravenous contrast administered. All CT scans at this location are performed using CT dose reduction for ALARA by means of automated exposure control. COMPARISON: None FINDINGS: There is an oval 1.1 cm hypodensity in the left thyroid lobe which contains no calcificati on. The thyroid is otherwise unremarkable. The heart and great vessels appear unremarkable with no pa thologic mediastinal adenopathy. Likewise no pathologic axillary adenopathy. There are scattered areas of mild groundglass attenuation with no focal consolidation or pleural effu jose alberto. The lungs are otherwise clear. Limited imaging of the upper abdomen shows mild steatosis with nothing acute. No acute osseous abnorm ality identified. IMPRESSION: Small scattered areas of mild groundglass attenuation within the lungs can be seen with s mall vessel or airway disease or also air trapping. There is no consolidation or pleural effusion. Signer Name: Mat Zhao MD Signed: 05/20/2019 11:08 PM Workstation Name: [id number]
[2019-05-21] MEDS: ACETAMINOPHEN 325 MG TAB PO PRN (00:18)
[2019-05-21] MEDS: ALBUTEROL 2.5 MG/3 ML NEBU IH SCH ×5 (03:38→16:51)
[2019-05-21] MEDS: methylPREDNISolone Sod Succinate 40 MG/1 ML INJ IV SCH ×3 (04:52→13:50)
[2019-05-21] MEDS: BENZONATATE 100 MG CAP PO SCH ×2 (06:12→13:49)
[2019-05-21] MEDS: BUDESONIDE 0.5 MG/2 ML NEBU IH SCH (08:05)
[2019-05-21] MEDS: PANTOPRAZOLE 40 MG TAB PO SCH (09:28)
[2019-05-21] MEDS: HEPARIN 5,000 UNIT/1 ML VIAL SUB-Q SCH (09:28)
[2019-05-21] MEDS: DOCUSATE SODIUM 100 MG CAP PO SCH (09:28)
[2019-05-21] MEDS: INSULIN LISPRO 100 UNIT/ML SUB-Q SCH ×3 (09:28→17:09)
--- NOTE | 2019-05-21 11:26 | Progress Note ---
Subjective Date of service: 05/21/19 Interval history: no acute events. had an outpatient CT done that was ordered by my partner. Objective Vital Signs - 12hr 05/21/19 05/21/19 05/21/19 03:50 08:04 08:05 Pulse Rate [ 102 H 71 Posterior Bilateral Throughout] Respiratory 24 20 Rate [Posterior Bilateral Throughout] O2 Sat by Pulse 95 Oximetry Constitutional: no acute distress, alert Eyes: non-icteric ENT: oropharynx moist Neck: supple, no JVD Effort: mildly labored Ascultation: Bilateral: wheezes Percussion: Bilateral: not dull Tactile fremitus: Bilateral: normal Cardiovascular: regular rate and rhythm Gastrointestinal: normoactive bowel sounds, soft, non-distended Integumentary: normal Extremities: no cyanosis, no edema, pink and warm, pulses normal Neurologic: normal mental status, non-focal exam Psychiatric: mood appropriate, affect normal CBC and BMP: 05/20/19 06:23 05/20/19 06:23 ABG, PT/INR, D-dimer: ABG ABG pH 7.390 pH Units (7.350-7.450) 05/19/19 02:20 ABG pCO2 39.5 mm Hg 05/19/19 02:20 ABG pO2 81.7 mm Hg (80.0-90.0) 05/19/19 02:20 ABG O2 Saturation 96.2 % (95.0-99.0) 05/19/19 02:20 Abnormal lab findings: Abnormal Labs 05/18/19 05/18/19 05/19/19 23:35 23:35 02:20 WBC 15.3 H Hgb 14.4 H Hct 43.7 H Lymph % (Auto) 12.9 L [place] % (Auto) 9.8 H Eos % (Auto) 7.0 H [place] # 1.5 H Eos # 1.1 H Seg Neuts % (Manual) Lymphocytes % (Manual) Seg Neutrophils # 10.7 H Seg Neutrophils # Man Lymphocytes # (Manual) Oxyhemoglobin 94.6 L Creatinine 0.6 L Glucose 126 H POC Glucose 05/19/19 05/19/19 05/19/19 08:08 11:19 16:16 WBC Hgb Hct Lymph % (Auto) [place] % (Auto) Eos % (Auto) [place] # Eos # Seg Neuts % (Manual) Lymphocytes % (Manual) Seg Neutrophils # Seg Neutrophils # Man Lymphocytes # (Manual) Oxyhemoglobin Creatinine Glucose POC Glucose 206 H 199 H 196 H 05/19/19 05/20/19 05/20/19 22:32 06:23 06:23 WBC 25.3 H Hgb Hct Lymph % (Auto) [place] % (Auto) Eos % (Auto) [place] # Eos # Seg Neuts % (Manual) 95.0 H Lymphocytes % (Manual) 4.0 L Seg Neutrophils # Seg Neutrophils # Man 24.0 H Lymphocytes # (Manual) 1.0 L Oxyhemoglobin Creatinine 0.5 L Glucose 194 H POC Glucose 178 H 05/20/19 05/20/19 05/20/19 08:22 12:28 17:06 WBC Hgb Hct Lymph % (Auto) [place] % (Auto) Eos % (Auto) [place] # Eos # Seg Neuts % (Manual) Lymphocytes % (Manual) Seg Neutrophils # Seg Neutrophils # Man Lymphocytes # (Manual) Oxyhemoglobin Creatinine Glucose POC Glucose 157 H 214 H 289 H 05/20/19 05/21/19 21:14 09:00 WBC Hgb Hct Lymph % (Auto) [place] % (Auto) Eos % (Auto) [place] # Eos # Seg Neuts % (Manual) Lymphocytes % (Manual) Seg Neutrophils # Seg Neutrophils # Man Lymphocytes # (Manual) Oxyhemoglobin Creatinine Glucose POC Glucose 180 H 143 H
--- NOTE | 2019-05-21 17:57 | Discharge Summary ---
Providers - Providers Date of Admission: 05/19/19 03:14 Date of discharge: 05/21/19 Attending physician: RASHAD ARMENTA 05/19/19 02:10 Consult to Physician [CONS] Routine Comment: Consulting Provider: DANIAL RAM Physician Instructions: Reason For Exam: Asthma AE, Bronchitis, est pt Primary care physician: NORMA TRAN Hospitalization Reason for admission: Acute hypoxic respiratory failure/acute exacerbation of bronchial asthma Condition: Fair Pertinent studies: CT chest with contrast Chest x-ray Hospital course: 42-year-old female with history of asthma and diabetes who presents to [facility] with complaints of difficulty breathing, and shortness of breath for the past day. Patient states that she has been experiencing i worsening shortness of breath and difficulty breathing despite using her rescue inhaler and maintenance Advair inhaler for the past day. She states that she is unable to walk more than a few steps without becoming profoundly short of breath. She also complains of cough with yellow/green sputum production. She was admitted to the hospital symptomatically managed with nebulizers, high- dose IV steroids, IV antibiotics, inhalation steroids Blood sugars closely monitored, medications were optimized, evaluated by regional education coordinator, medications were optimized Patient's symptoms significantly improved, evaluated for home oxygen need. Patient's resting and ambulatory room air O2 sats at more than 94% No indication for home oxygen Today patient is comfortable in no new complaints vital signs stable Physical examination is unremarkable Stable for discharge and follow up with regional education coordinator as outpatient Hemodynamically and clinically stable at discharge Discharge diagnosis: --Acute exacerbation of bronchial asthma; Oxygen titrate to O2 sats more than 90%, albuterol Inhalation steroids, tapering days of IV steroids Evaluation for home oxygen --Acute bronchitis; bronchodilators, steroids --Acute hypoxic respiratory failure present on admission; Patient's room air O2 sats was less than 88% Required BiPAP, continue current management --Type 2 diabetes mellitus; Moderate control, Accu-Chek sliding scale coverage and ADA diet Hold metformin, A1c 6.9 Stable at discharge Disposition: DC-01 TO HOME OR SELFCARE Time spent for discharge: 32 min Core Measure Documentation - Palliative Care Palliative Care/ Comfort Measures: Not Applicable - Core Measures Any of the following diagnoses?: none Exam - Constitutional Vitals: Temp Pulse Resp BP Pulse Ox 98.4 F 83 20 139/77 93 05/21/19 11:19 05/21/19 16:51 05/21/19 16:51 05/21/19 11:19 05/21/19 11:19 General appearance: Present: no acute distress, well-nourished - EENT Eyes: Present: PERRL, EOM intact - Neck Neck: Present: supple, normal ROM - Respiratory Respiratory effort: normal Respiratory: bilateral: diminished, rales, wheezing, negative: rhonchi - Cardiovascular Rhythm: regular Heart Sounds: Present: S1 & S2 - Extremities Extremities: no ischemia, No edema - Abdominal General gastrointestinal: Present: soft, non-tender, non-distended, normal bowel sounds - Integumentary Integumentary: Present: clear, warm - Musculoskeletal Musculoskeletal: strength equal bilaterally - Psychiatric Psychiatric: appropriate mood/affect, cooperative - Neurologic Neurologic: moves all extremities Plan Activity: advance as tolerated Diet: regular Additional Instructions: Resting room air and ambulatory room air O2 sats more than 94%. No indication for home oxygen. 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 Return to work on 05/25/2019 if you feel better. Continue nebulizers, inhalers, Advair as before Follow up with: NORMA TRAN MD [Primary Care Provider] - 7 Days DANIAL RAM MD [Staff Physician] - 3 Days Prescriptions: levoFLOXacin [Levaquin TAB] 500 mg PO QDAY #4 tablet Prednisone [predniSONE 10 mg (6-Day Pack, 21 Tabs)] 10 mg PO .TAPER #1 tab.ds.pk Benzonatate [Tessalon Perles] 100 mg PO Q8HR #20 capsule
[2019-05-21 18:34] VITALS: BP 126/76
== END 2019-05-21 19:44 | disposition home or self-care (01) | DRG 189 ==
LOC: ED 23:04 → EEVIPCON 23:04 → 3A 05-19 03:14
PROVIDERS: ADMIT Internal Medicine; ATTEND Internal Medicine
PROC: 4A033R1 Measurement of Arterial Saturation, Peripheral, Percutaneous Approach (ICD-10-PCS; principal; 2019-05-19)
PROC: 5A09357 Assistance with Respiratory Ventilation, Less than 24 Consecutive Hours, Continuous Positive Airway Pressure (ICD-10-PCS; 2019-05-19)
DX: J96.01 Acute respiratory failure with hypoxia (principal); J45.902 Unspecified asthma with status asthmaticus; E11.9 Type 2 diabetes mellitus without complications; J20.9 Acute bronchitis, unspecified; I10 Essential (primary) hypertension; K21.9 Gastro-esophageal reflux disease without esophagitis; J06.9 Acute upper respiratory infection, unspecified; Z71.6 Tobacco abuse counseling; Z79.899 Other long term (current) drug therapy
CPT/HCPCS: 36415; 71045; 71260; 80048; 80053; 82803; 82962; 85007; 85025; 87040; 94640; 94644; 94760; 99406; G0378; J0692; J1644; J1815; J1956; J2920; J2930; J3475; Q9967

== ENCOUNTER 2019-06-28 08:55 | Outpatient (CLI) | payer BC ==
[2019-06-28 12:46] LABS: Alanine Aminotransferase 26 units/L (7-56); Albumin 4.2 g/dL (3.9-5); BUN/Creatinine Ratio 16; Blood Urea Nitrogen 8 mg/dL (7-17); Calcium 9.2 mg/dL (8.4-10.2); Chol/HDL Ratio 2.44 %; HDL Cholesterol 78 mg/dL (40-59); Hemolysis Index 8; LDL Cholesterol,Direct 118 mg/dL (50-130)
== END 2019-06-28 08:56 | disposition home or self-care (01) ==
LOC: LAB 08:55
PROVIDERS: ATTEND Family Medicine
DX: Z00.00 Encounter for general adult medical examination without abnormal findings (principal)
CPT/HCPCS: 36415; 80053; 80061; 82306; 83036

== ENCOUNTER 2020-01-26 06:57 | Outpatient (CLI) | payer BC | END 2020-01-26 06:58 | disposition home or self-care (01) | LOC: MAMMO 06:57 | PROVIDERS: ATTEND Obstetrics & Gynecology | DX: Z12.31 Encounter for screening mammogram for malignant neoplasm of breast (principal) | CPT/HCPCS: 77067 ==

== ENCOUNTER 2020-03-02 08:25 | Outpatient (CLI) | payer BC ==
--- NOTE | 2020-03-02 16:01 | Ultrasound Report ---
RIGHT DIGITAL DIAGNOSTIC MAMMOGRAM WITH CAD CONVENTIONAL, 03/02/2020 RIGHT LIMITED BREAST ULTRASOUND CLINICAL INFORMATION / INDICATION: ABN MAMMO TECHNIQUE: Digital right mammographic imaging was performed. Spot compression views were obtained. [facility]. This examination was interpreted with the benefit of Computer-Aided D etection (CAD) analysis. COMPARISON: 01/26/2020 and 02/12/2018 FINDINGS: Breast Density: There are scattered areas of fibroglandular density. MAMMOGRAPHIC FINDINGS: Nodular densities seen in the right breast persist on spot compression views. The focal asymmetric density seen on the cc view persist but slightly improved and no significant cor relate is seen on the MLO or lateral view. ULTRASOUND FINDINGS: Targeted ultrasound evaluation was performed of the area of interest. 2 small complex cysts are seen in the right breast in the 6:00 position 3 cm above the level there is a 4 mm complex cyst noted. In the 9:00 position 3 cm from the nipple there is a 6 mm complex cyst. No other nodules are seen. IMPRESSION: 2 small complex appearing cysts are noted in the left breast in. Corresponding to the paty mographic abnormalities by location that the sizes are slightly different between the 2 studies. Thes e are probably benign. The focal asymmetric density improved somewhat on spot compression views. On review of the study from 2018 is was present at that time and appears similar on the spot views of the 2018 exam. This is pro bably benign as well. Follow up recommendation: Short term follow up in 6 months. BI-RADS Category 3: Probably Benign. Followup in 6 months. A "normal" or negative report should not discourage follow up or biopsy of a clinically significant f inding. A written summary of these findings will be mailed to the patient. The patient will be entered into a mammography reporting system which will generate a reminder letter for the patient's next appointmen t at the appropriate interval. According to the [employer], yearly mammograms are recommended starting at age 40 and continuing as long as a woman is in good health. Breast MRI is recommended for women with an [place] roximately 20-25% or greater lifetime risk of breast cancer, including women with a strong family his tory of breast or ovarian cancer and women who have been treated for Hodgkin's disease. Signer Name: Ray Crews MD Signed: 03/02/2020 3:56 PM Workstation Name: [id number]
--- NOTE | 2020-03-02 18:13 | Mammography Report ---
RIGHT DIGITAL DIAGNOSTIC MAMMOGRAM WITH CAD CONVENTIONAL, 03/02/2020 RIGHT LIMITED BREAST ULTRASOUND CLINICAL INFORMATION / INDICATION: Abnormal screening mammogram. Screening recall the right breast fo r right breast densities. TECHNIQUE: Digital right mammographic imaging was performed. Spot compression views were obtained. [facility]. This examination was interpreted with the benefit of Computer-Aided D etection (CAD) analysis. COMPARISON: Screening mammogram, 01/26/2020, 02/12/2018, 08/07/2016 FINDINGS: Breast Density: There are scattered areas of fibroglandular density. MAMMOGRAPHIC FINDINGS: Spot compression views of the right breast were obtained which demonstrate a c ircumscribed 4 mm nodular density at the 6:00 position posterior depth and a 6 mm nodular density at the 9:00 position posterior depth. Both of these appear less prominent with spot compression views. T he appearance is similar when compared to prior mammograms. ULTRASOUND FINDINGS: Targeted ultrasound evaluation was performed of the area of interest. Sonograp hic evaluation of the left breast demonstrates an oval mildly complicated cyst at the 6:00 position 3 cm from the nipple measuring 4 mm. There is a second mildly complicated cyst at the 9:00 position 3 cm from the nipple measuring 6 mm. These appear to correspond to the density seen on the mammogram. T here is no evidence of suspicious solid mass or shadowing. IMPRESSION: Mildly complicated right breast cysts as described above. A six-month follow-up right paty mogram and ultrasound is recommended to confirm stability. Follow up recommendation: Short term follow up in 6 months. BI-RADS Category 3: Probably Benign. Followup in 6 months. A "normal" or negative report should not discourage follow up or biopsy of a clinically significant f inding. A written summary of these findings will be mailed to the patient. The patient will be entered into a mammography reporting system which will generate a reminder letter for the patient's next appointmen t at the appropriate interval. According to the [employer], yearly mammograms are recommended starting at age 40 and continuing as long as a woman is in good health. Breast MRI is recommended for women with an [place] roximately 20-25% or greater lifetime risk of breast cancer, including women with a strong family his tory of breast or ovarian cancer and women who have been treated for Hodgkin's disease. Signer Name: Juliane Palacios MD Signed: 03/02/2020 6:09 PM Workstation Name: [email or web address]
== END 2020-03-02 08:26 | disposition home or self-care (01) ==
LOC: MAMMO 08:25
PROVIDERS: ATTEND Obstetrics & Gynecology
DX: N60.01 Solitary cyst of right breast (principal); N60.02 Solitary cyst of left breast; N63.41 Unspecified lump in right breast, subareolar

== ENCOUNTER 2020-07-27 12:32 | Outpatient (CLI) | payer BC ==
--- NOTE | 2020-07-27 14:30 | Cat Scan Report ---
CT CHEST WITHOUT CONTRAST INDICATION / CLINICAL INFORMATION: COUGH. TECHNIQUE: Axial CT images were obtained through the chest without contrast. All CT scans at this location are p erformed using CT dose reduction for ALARA by means of automated exposure control. COMPARISON: 05/20/2019 FINDINGS: There is some mild increased interstitial nodularity and densities in the right lung apex which appea r unchanged. Small peripheral area of groundglass density seen within the right middle lobe measuring 0.7 cm. This was not seen on the prior exam. There are groundglass densities within the upper lungs bilaterally. Mild interstitial nodularity is seen within the left lower lung as well with a few nodul es measuring 4 5 mm in size. No mediastinal or hilar adenopathy. Nonobstructing bilateral renal stone s. No acute bone findings are seen. IMPRESSION: 1. Scattered areas of groundglass attenuation with interstitial nodularity in interstitial lung disea se. A few nodular densities 1 within the right middle lobe and a few nodules in the left lower lung m ay be new since prior examination. Findings could represent atypical infection, inflammatory, follow- up is recommended. 2. Nonobstructing bilateral renal stones. Signer Name: Willie Thurston MD Signed: 07/27/2020 2:26 PM Workstation Name: [email or web address]
--- NOTE | 2020-07-27 15:13 | Cat Scan Report ---
SINUS CT 07/27/2020 HISTORY: Cough. Sinus drainage. FINDINGS: CT images of the paranasal sinuses were obtained. Images are evaluated in the axial, reid l, and sagittal planes. There is a 2 cm lobulated mucosal retention cyst in the left sphenoid sinus. The right sphenoid sinus is opacified. Maxillary sinuses are clear. The infundibula are patent. Mild mucosal thickening is seen in some of the anterior ethmoid air cells, left greater than right, a s well as the inferior aspect of the frontal sinus. Rightward deviation of the nasal septum is noted. Visualized portions of the skull base and orbits are unremarkable. IMPRESSION: Paranasal sinus disease as described above. No definite evidence of acute sinusitis. All CT scans at this location are performed using dose reduction to ALARA by means of automated expos ure control. Signer Name: Christopher Vera MD Signed: 07/27/2020 3:08 PM Workstation Name: [id number]
== END 2020-07-27 12:33 | disposition home or self-care (01) ==
LOC: CT 12:32
PROVIDERS: ATTEND Specialist
DX: J34.1 Cyst and mucocele of nose and nasal sinus (principal); R91.1 Solitary pulmonary nodule; J34.2 Deviated nasal septum; N28.1 Cyst of kidney, acquired
CPT/HCPCS: 70486; 71250

== ENCOUNTER 2020-08-21 12:47 | Outpatient (CLI) | payer BC ==
--- NOTE | 2020-08-21 13:31 | XRay Report ---
CHEST 2 VIEWS INDICATION / CLINICAL INFORMATION: COUGH R05. FINDINGS: SUPPORT DEVICES: None. HEART / MEDIASTINUM: No significant abnormality. LUNGS / PLEURA: No significant pulmonary or pleural abnormality. No pneumothorax. ADDITIONAL FINDINGS: No significant additional findings. IMPRESSION: 1. No acute findings. Signer Name: Douglas Stewart MD Signed: 08/21/2020 1:27 PM Workstation Name: [id number]
[2020-08-22 08:08] LABS: Basophils # (Auto) 0.1 K/mm3 (0.0-0.1); Basophils % (Auto) 0.4 % (0.0-1.8); Eosinophils # (Auto) 0.2 K/mm3 (0.0-0.4); Eosinophils % (Auto) 1.6 % (0.0-4.3); Hematocrit 41.6 % (30.3-42.9); Hemoglobin 13.5 gm/dl (10.1-14.3); Lymphocytes # (Auto) 2.2 K/mm3 (1.2-5.4); Lymphocytes % (Auto) 14.2 % (13.4-35.0); Mean Corpuscular HGB Conc 33 % (30-34); Mean Corpuscular Volume 92 fl (79-97); Monocytes # (Auto) 1.2 K/mm3 (0.0-0.8); Monocytes % (Auto) 8.1 % (0.0-7.3); Platelet Count 389 K/mm3 (140-440)
[2020-08-22 08:28] LABS: Alanine Aminotransferase 18 units/L (7-56); Albumin 3.6 g/dL (3.9-5); Blood Urea Nitrogen 11 mg/dL (7-17); Calcium 8.4 mg/dL (8.4-10.2); LDL Cholesterol,Direct 91 mg/dL (50-130)
[2020-08-22 08:29] LABS: Chol/HDL Ratio 2.34 %; HDL Cholesterol 64 mg/dL (40-59); Hemolysis Index 5
[2020-08-22 08:36] LABS: BUN/Creatinine Ratio 18
[2020-08-22 08:43] LABS: Free T4 (Free Thyroxine) 0.78 ng/dL (0.76-1.46)
== END 2020-08-21 12:48 | disposition home or self-care (01) ==
LOC: XRAY 12:47
PROVIDERS: ATTEND Specialist
DX: R05 Cough (principal)
CPT/HCPCS: 36415; 71046; 80053; 80061; 83036; 84439; 84443; 85025

== ENCOUNTER 2020-08-31 13:02 | Outpatient (CLI) | payer BC ==
[2020-08-22 14:19] LABS: Creatinine,Urine 89.4 mg/dL (0.1-20.0)
[2020-08-22 14:28] LABS: Microalbumin/Creatinine Ratio 13.4 ug/mg
[2020-08-27 12:56] LABS: Vitamin D, 25-OH, D2 27 ng/mL
--- NOTE | 2020-08-31 17:03 | Ultrasound Report ---
RIGHT DIGITAL DIAGNOSTIC MAMMOGRAM WITH CAD CONVENTIONAL, 08/31/2020 RIGHT LIMITED BREAST ULTRASOUND CLINICAL INFORMATION / INDICATION: Follow-up nodularity TECHNIQUE: Digital right mammographic imaging was performed. Spot compression views were obtained. Li mited ultrasound was performed. This examination was interpreted with the benefit of Computer-Aided D etection (CAD) analysis. COMPARISON: Right mammogram 03/02/2020, bilateral mammogram 01/26/2020, right breast ultrasound 2019 FINDINGS: Breast Density: There are scattered areas of fibroglandular density. MAMMOGRAPHIC FINDINGS: A nodular density seen previously in the central lower far posterior breast is less prominent. Other nodular type densities are stable. No new lesion is seen. ULTRASOUND FINDINGS: Targeted ultrasound evaluation was performed of the area of interest. The minima l hypoechoic area measuring only 3 mm in the 6:00 position, 3 cm from the nipple, is stable. An ovoid benign-appearing mostly hypoechoic nodule versus competition cyst in the 9:00 position, 3 cm from th e nipple, is stable with a maximal diameter of 5 mm. No new lesions are seen. IMPRESSION: Stable appearance Follow up recommendation: Return to screening mammography in 6 months. Follow-up right breast ultraso und in 6 months. BI-RADS Category 3: Probably Benign. Followup in 6 months. A "normal" or negative report should not discourage follow up or biopsy of a clinically significant f inding. A written summary of these findings will be mailed to the patient. The patient will be entered into a mammography reporting system which will generate a reminder letter for the patient's next appointmen t at the appropriate interval. According to the [employer], yearly mammograms are recommended starting at age 40 and continuing as long as a woman is in good health. Breast MRI is recommended for women with an [place] roximately 20-25% or greater lifetime risk of breast cancer, including women with a strong family his tory of breast or ovarian cancer and women who have been treated for Hodgkin's disease. Signer Name: Harrison Butts MD Signed: 08/31/2020 4:59 PM Workstation Name: [id number]
== END 2020-08-31 13:03 | disposition home or self-care (01) ==
LOC: MAMMO 13:02
PROVIDERS: ATTEND Obstetrics & Gynecology
DX: N63.10 Unspecified lump in the right breast, unspecified quadrant (principal)
CPT/HCPCS: 36415; 82043; 82306; 82607; 82747; 86803; 88112; 88312

== ENCOUNTER 2020-09-05 08:02 | Outpatient (CLI) | payer BC ==
--- NOTE | 2020-09-05 10:10 | Ultrasound Report ---
ULTRASOUND ABDOMEN, LIMITED (RIGHT UPPER QUADRANT) INDICATION: ABDOMINAL PAIN COMPARISON: None available. LIMITATIONS: None FINDINGS: Pancreas: Fatty infiltration is noted but no focal masses are seen. Tail is not well visualized. Liver: Moderate diffuse fatty infiltration is seen. No focal masses are noted. Liver is not significa ntly enlarged. Hepatic length measures 15.2 cm. Gallbladder: Normal. Bile ducts: Normal. Common Bile Duct measures 3 mm. Right Kidney: Multiple small nonobstructing calculi are seen measuring up to 7 mm. Free fluid: None. Additional Findings: None. IMPRESSION: No acute abnormalities are seen. Signer Name: Harrison Butts MD Signed: 09/05/2020 10:06 AM Workstation Name: [id number]
== END 2020-09-05 08:03 | disposition home or self-care (01) ==
LOC: US 08:02
PROVIDERS: ATTEND Family Medicine
DX: K76.0 Fatty (change of) liver, not elsewhere classified (principal); N20.0 Calculus of kidney
CPT/HCPCS: 76705

== ENCOUNTER 2020-12-26 12:41 | Outpatient (CLI) | payer BC ==
--- NOTE | 2020-12-27 09:36 | Cat Scan Report ---
CT CHEST WITHOUT CONTRAST INDICATION / CLINICAL INFORMATION: SOLITARY PULMONARY NODULE. TECHNIQUE: Axial CT images were obtained through the chest without contrast. Sagittal and coronal reformatted im ages. All CT scans at this location are performed using CT dose reduction for ALARA by means of autom ated exposure control. COMPARISON: 07/27/2020 FINDINGS: HEART: No significant abnormality. THORACIC AORTA: No significant abnormality. MEDIASTINUM and SHAMAR: No significant abnormality. LUNGS: No acute air space or interstitial disease. Previously described areas of groundglass density with interstitial nodularity have resolved since the previous exam. No suspicious pulmonary lesion i s detected. PLEURA: No significant pleural effusion. No pneumothorax. SKELETAL SYSTEM: No significant abnormality. UPPER ABDOMEN: Bilateral calyceal stones are noted in the superior kidneys. No hydronephrosis. ADDITIONAL FINDINGS: None. IMPRESSION: Unremarkable CT chest without contrast. Bilateral nephrolithiasis, partially imaged. Signer Name: William Bonner Jr, MD Signed: 12/27/2020 9:32 AM Workstation Name: [id number]
== END 2020-12-26 12:42 | disposition home or self-care (01) ==
LOC: CT 12:41
PROVIDERS: ATTEND Specialist
DX: R91.1 Solitary pulmonary nodule (principal); N20.0 Calculus of kidney
CPT/HCPCS: 71250